=== PATIENT | female | born 1980 | race Asian ===

== ENCOUNTER 2016-10-08 13:10 | Inpatient (IN) | payer SELFPAY ==
[~2016-10-08] VITALS: Ht 164 cm; Wt 68.0 kg
[2016-10-08] MEDS ORDERED: ROPIVACAINE 0.2%/NS PREMIX 250 ML EPI ONE (13:56)
[2016-10-08] MEDS ORDERED: AMPICILLIN 2,000 MG VIAL ONE (14:20)
[2016-10-08] MEDS ORDERED: OXYTOCIN 20 UNITS/LR PREMIX 1,000 ML IV SCH (14:26)
[2016-10-08] MEDS ORDERED: LACTATED RINGERS 1,000 ML IV SCH (14:26)
[2016-10-08] MEDS ORDERED: AMPICILLIN 2,000 MG in NACL 0.9% 100 ML IV STA (14:26)
[2016-10-08] MEDS ORDERED: PROMETHAZINE 25 MG/ML VIAL IVP PRN (14:30)
[2016-10-08] MEDS ORDERED: OXYTOCIN 10 UNITS/ML VIAL IM PRN ×2 (14:30→20:40)
[2016-10-08] MEDS ORDERED: METHYLERGONOVINE 0.2 MG/ML AMP IM SCH (14:30)
[2016-10-08 15:23] LABS: BASOPHILS # (AUTO) 0.1 K/uL (0.00-0.22); EOSINOPHILS # (AUTO) 0.1 K/uL (0-0.4); EOSINOPHILS % (AUTO) 0.9 % (0.0-4.0); HEMATOCRIT 39.5 % (36-48); HEMOGLOBIN 13.1 g/dL (12.0-16.0); LYMPHOCYTES # (AUTO) 0.8 K/uL (2.5-16.5); LYMPHOCYTES % (AUTO) 6.6 % (20.5-51.1); MEAN CORPUSCULAR HEMOGLOBIN 32 pg (27-31); MEAN CORPUSCULAR HGB CONC 33 g/dL (33-37); MEAN CORPUSCULAR VOLUME 98 fL (80-94); MONOCYTES # (AUTO) 0.6 K/uL (0.8-1.0); MONOCYTES % (AUTO) 4.6 % (1.7-9.3); NEUTROPHILS # (AUTO) 10.4 K/uL (1.8-7.7); NEUTROPHILS % (AUTO) 86.9 % (42.2-75.2); PLATELET COUNT (AUTO) 139 K/uL (140-450); RED BLOOD CELL COUNT(AUTO) 4.04 MIL/uL (4.20-5.40); RED CELL DISTRIBUTION WIDTH 12.4 % (11.6-13.7)
[2016-10-08 15:27] LABS: APPEARANCE,URINE HAZY (CLEAR); BILIRUBIN,URINE NEGATIVE (NEGATIVE); BLOOD, URINE 3+ (NEGATIVE); COLOR,URINE YELLOW (YELLOW); LEUKOCYTE ESTERASE ,URINE 1+ (NEGATIVE); NITRITE, URINE NEGATIVE (NEGATIVE); UGLUCOSE NEGATIVE (NEGATIVE)
[2016-10-08 15:33] LABS: RBC,URINE TOO NUMEROUS TO COUN /HPF (0-5)
[2016-10-08] MEDS ORDERED: OXYTOCIN 10 UNITS/ML VIAL ONE (18:42)
[2016-10-08] MEDS ORDERED: OXYTOCIN 20 UNITS/LR PREMIX 1,000 ML IV ONE (18:42)
[2016-10-08] MEDS ORDERED: HYDROcodone/APAP 5/325 MG 1 TAB TAB PO PRN (20:40)
[2016-10-08] MEDS ORDERED: MEASLES, MUMPS, AND RUBELLA 1 VIAL SQVAC PRN (20:40)
[2016-10-08] MEDS ORDERED: METHYLERGONOVINE 0.2 MG/ML AMP IM PRN (20:40)
[2016-10-08] MEDS ORDERED: TEMAZEPAM 15 MG CAP PO PRN (20:40)
[2016-10-08] MEDS ORDERED: BENZOCAINE/MENTHOL 20%-0.5% 60 GM CAN TP PRN (20:40)
[2016-10-08] MEDS ORDERED: IBUPROFEN 800 MG TAB PO PRN (20:40)
[2016-10-08] MEDS ORDERED: oxyCODONE/APAP 5/325 MG 1 TAB TAB PO PRN (20:40)
[2016-10-08] MEDS ORDERED: OXYTOCIN 10 UNITS/ML VIAL IM SCH (20:50)
[2016-10-08] MEDS ORDERED: DOCUSATE SOD/SENNA 50/8.6 MG 1 TAB PO SCH (21:00)
[2016-10-08] MEDS ORDERED: LACTATED RINGERS 1,000 ML IV ONE (21:15)
[2016-10-09 05:57] LABS: HEMATOCRIT 33.3 % (36-48); HEMOGLOBIN 11.5 g/dL (12.0-16.0)
--- NOTE | 2016-10-09 09:27 | NUR ---
PATIENT HAS BEEN SCREENED AND CATEGORIZED LOW NUTRITION RISK. PATIENT WILL BE SEEN WITHIN 7 DAYS OF ADMISSION. 10/15/[address]
[2016-10-10] MEDS ORDERED: IBUP200S18 PO (08:49)
== END 2016-10-10 15:15 | disposition home or self-care (01) | DRG 775 ==
LOC: MLD 13:10 → MFCC 23:40
PROVIDERS: ADMIT Obstetrics & Gynecology; ATTEND Obstetrics & Gynecology
PROC: 10E0XZZ Delivery of Products of Conception, External Approach (ICD-10-PCS; principal; 2016-10-08)
PROC: 0W8NXZZ Division of Female Perineum, External Approach (ICD-10-PCS; 2016-10-08)
PROC: 00HU33Z Insertion of Infusion Device into Spinal Canal, Percutaneous Approach (ICD-10-PCS; 2016-10-08)
PROC: 3E0R3CZ (ICD-10-PCS; 2016-10-08)
DX: O80 Encounter for full-term uncomplicated delivery (principal); Z37.0 Single live birth; Z3A.38 38 weeks gestation of pregnancy
CPT/HCPCS: 36415; 51702; 59409; 81001; 85018; 85025; 86592; 86886; 86900; 86901; 87086; 90715; J0290; J2590; J2795